=== PATIENT | male | born 1975 | race American Indian/Alaskan Native ===

== ENCOUNTER 2021-03-19 08:41 | Emergency (ER) | payer OTHER ==
[2021-03-19] MEDS ORDERED: IBUPROFEN 800 MG TAB PO ONE (09:34)
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
[2021-03-19 10:52] VITALS: BP 171/86
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
== END 2021-03-19 11:05 | disposition home or self-care (01) ==
LOC: ED 08:41
DX: S13.4XXA Sprain of ligaments of cervical spine, initial encounter (principal); S39.012A Strain of muscle, fascia and tendon of lower back, initial encounter; I10 Essential (primary) hypertension; Z79.899 Other long term (current) drug therapy; V89.2XXA Person injured in unspecified motor-vehicle accident, traffic, initial encounter; Y93.89 Activity, other specified; Y92.488 Other paved roadways as the place of occurrence of the external cause; Y99.8 Other external cause status
CPT/HCPCS: 72040; 72100; 99283